=== PATIENT | male | born 1955 | race Native Hawaiian/Other Pacific Islander ===

== ENCOUNTER 2018-11-08 09:13 | Outpatient (CLI) | payer OTHER | END 2018-11-08 09:14 | disposition home or self-care (01) | LOC: C.LAB 09:13 ==

== ENCOUNTER 2018-11-15 01:57 | Emergency (ER) | payer OTHER ==
[2018-11-15] MEDS ORDERED: Albuterol-Ipratrop 3 mg / 0.5 (3 ml) UD ONE ×2 (02:06→02:56)
--- NOTE | 2018-11-15 02:27 | C.PDOC ---
History Of Present Illness Patient presents with wheezing, shortness of breath. Used inhaler at home, but states it didn't help him. Speaking in complete sentences., No f/c/n/v .No chest pain or palpitations Time Seen by Provider: 11/15/18 02:27 Chief Complaint (Nursing): Shortness Of Breath History Per: Patient History/Exam Limitations: no limitations Onset/Duration Of Symptoms: Hrs Current Symptoms Are (Timing): Still Present Initiating Event: Upper Respiratory Illness Exacerbating Factor(s): Coughing Current Respiratory Medications: See Home Med List Severity: Moderate Pain Scale Rating Of: 4 Associated Symptoms: denies: Fever, Chills Reports Recently: Seen In ED, Treated By A Physician Recent travel outside of the [place]: No Additional History Per: Family Past Medical History Reviewed: Historical Data, Nursing Documentation, Vital Signs Vital Signs: Last Vital Signs Temp 98 F 11/15/18 02:10 Pulse 102 H 11/15/18 02:10 Resp 20 11/15/18 02:24 BP 158/84 H 11/15/18 02:10 Pulse Ox 98 11/15/18 02:10 - Medical History PMH: Asthma, HTN, Hypercholesterolemia Denies: Chronic Kidney Disease Family History: States: No Known Family Hx - Social History Hx Alcohol Use: No Hx Substance Use: No - Immunization History Hx Tetanus Toxoid Vaccination: No Hx Influenza Vaccination: No Hx Pneumococcal Vaccination: No Review Of Systems Constitutional: Negative for: Fever, Chills Eyes: Negative for: Redness ENT: Negative for: Throat Pain Cardiovascular: Negative for: Chest Pain Respiratory: Positive for: Cough, Shortness of Breath, Wheezing Gastrointestinal: Negative for: Nausea, Vomiting, Abdominal Pain Musculoskeletal: Negative for: Back Pain Skin: Negative for: Rash Neurological: Negative for: Weakness Psych: Positive for: Anxiety Physical Exam - Physical Exam Appears: Non-toxic, No Acute Distress Skin: Warm, Dry Neck: Supple Chest: Symmetrical Cardiovascular: Rhythm Regular Respiratory: No Rales, No Rhonchi, Wheezing Gastrointestinal/Abdominal: Soft, No Tenderness, No Distention Extremity: Bilateral: Atraumatic Gait: Steady ED Course And Treatment - Laboratory Results Result Diagrams: 11/15/18 03:30 11/15/18 03:30 O2 Sat by Pulse Oximetry: 98 Pulse Ox Interpretation: Normal - Radiology CXR: Interpreted by Me, Viewed By Me CXR Interpretation: Yes: Other (? mild vasc congestion). No: Infiltrates, Fracture, Pnemothorax Reevaluation Time: 05:31 Reassessment Condition: Improved Critical Care Time - Critical Care Note Total Time (in mins): 30 Documented critical care: time excludes all time spent performing seperately billable procedures. Disposition Counseled Patient/Family Regarding: Studies Performed, Diagnosis, Need For Followup, Rx Given - Disposition Referrals: Antolin Wood MD [Staff Provider] - Disposition: HOME/ ROUTINE Disposition Time: 02:27 Condition: FAIR Prescriptions: Azithromycin [Zithromax Tri-Todd] 500 mg PO DAILY #3 tablet Prednisone [Deltasone] 20 mg PO DAILY #5 tablet Instructions: Asthma, Adult (DC) Forms: [facility] ([place]) - Clinical Impression Clinical Impression: Dyspnea, Asthma exacerbation
[2018-11-15] MEDS: Albuterol-Ipratrop 3 mg / 0.5 (3 ml) UD IH SCH ×2 (02:46→03:08)
[2018-11-15 03:12] LABS: ABG ALLEN TEST POS; ARTERIAL BLOOD GAS HCO3 21.8 mmol/L (21-28); ARTERIAL BLOOD GAS O2 SAT 98.8 % (95-98); ARTERIAL BLOOD GAS PCO2 32 mm/Hg (35-45); ARTERIAL BLOOD GAS PO2 108 mm/Hg (80-100); ARTERIAL BLOOD GAS TCO2 20.8 mmol/L (22-28)
[2018-11-15 03:38] LABS: BASO # 0.1 K/uL (0.0-0.2); BASO % 1.1 % (0.0-2.0); EOS # 0.4 K/uL (0.0-0.7); EOS % 3.8 % (0.0-4.0); HEMOGLOBIN 13.2 g/dL (12.0-18.0); LYMPH # 2.3 K/uL (1.0-4.3); LYMPH % 20.3 % (20.0-40.0); MEAN CORPUSCULAR HEMOGLOBIN 25.5 pg (27.0-31.0); MEAN CORPUSCULAR HGB CONC 33.1 g/dL (33.0-37.0); MEAN PLATELET VOLUME 8.5 fL (7.2-11.7); MONO # 1.1 K/uL (0.0-0.8); MONO % 10.2 % (0.0-10.0); NEUT # 7.2 K/uL (1.8-7.0); NEUT % 64.6 % (50.0-75.0); RBC 5.16 Mil/uL (4.40-5.90); RED CELL DISTRIBUTION WIDTH 14.4 % (11.5-14.5); WHITE BLOOD COUNT 11.2 K/uL (4.8-10.8)
[2018-11-15 03:45] LABS: BLOOD UREA NITROGEN 12 mg/dL (9-20); CALCIUM 8.7 mg/dl (8.6-10.4); GFR NON-AFRICAN AMERICAN > 60
[2018-11-15 04:23] VITALS: PULSE 78; RESP 17
[2018-11-15 05:12] VITALS: O2SAT 98
[2018-11-15 05:38] VITALS: BP 144/78; TEMP 98.4
--- NOTE | 2018-11-15 12:59 | RAD ---
HISTORY: SOB COMPARISON: Chest x-ray performed 09/03/17 TECHNIQUE: Chest, one view. FINDINGS: Examination limited by habitus and hypoinflation. LUNGS: Vascular crowding due to hypoinflation versus mild pulmonary venous congestion. Please note that chest x-ray has limited sensitivity for the detection of pulmonary masses. PLEURA: No significant pleural effusion identified. No definite pneumothorax . CARDIOVASCULAR: Heart size appears within normal limits. Atherosclerotic calcifications present. OSSEOUS STRUCTURES: No acute osseous abnormality identified. VISUALIZED UPPER ABDOMEN: Unremarkable. OTHER FINDINGS: None. IMPRESSION: Vascular crowding due to hypoinflation versus mild pulmonary venous congestion.
== END 2018-11-15 05:38 | disposition home or self-care (01) ==
LOC: C.ER 01:57
DX: J45.901 Unspecified asthma with (acute) exacerbation (principal); I10 Essential (primary) hypertension; E78.00 Pure hypercholesterolemia, unspecified; Z87.891 Personal history of nicotine dependence
CPT/HCPCS: 71045; 80048; 82803; 83880; 85025; 87804; 96374; 99284; J2930

== ENCOUNTER 2018-11-29 12:41 | Outpatient (CLI) | payer OTHER | END 2018-11-29 12:42 | disposition home or self-care (01) | LOC: C.RT 12:41 ==

== ENCOUNTER 2018-12-29 10:28 | Outpatient (CLI) | payer OTHER | END 2018-12-29 10:29 | disposition home or self-care (01) | LOC: C.LAB 10:28 ==

== ENCOUNTER 2019-01-04 09:42 | Outpatient (CLI) | payer OTHER | END 2019-01-04 09:43 | disposition home or self-care (01) | LOC: C.CTH 09:42 ==